=== PATIENT | female | born 1980 | race Caucasian/White ===

== ENCOUNTER 2017-07-15 14:48 | Emergency (ER) | payer MEDICAID ==
[~2017-07-15] VITALS: Ht 165.1 cm; Wt 78.0 kg
[2017-07-15] MEDS ORDERED: TETANUS, DIPHTHERIA, PERTUSSIS VAC/PF 0.5ML (>7YR OLD) IM ONE (18:15)
[2017-07-15] MEDS ORDERED: KETOROLAC 60MG/2ML VIAL IM ONE (18:15)
[2017-07-15 18:23] VITALS: BP 166/116
== END 2017-07-15 18:24 | disposition home or self-care (01) ==
LOC: ER 16:08
DX: S00.83XA Contusion of other part of head, initial encounter (principal); I10 Essential (primary) hypertension; V19.88XA Pedal cyclist (driver) (passenger) injured in other specified transport accidents, initial encounter; Y93.89 Activity, other specified; Y92.89 Other specified places as the place of occurrence of the external cause; Y99.8 Other external cause status
CPT/HCPCS: 81025; 90471; 90715; 96372; 99284; J1885

== ENCOUNTER 2018-02-06 16:50 | Emergency (ER) | payer MEDICAID ==
[~2018-02-06] VITALS: Ht 165.1 cm; Wt 78.0 kg
[2018-02-06] MEDS ORDERED: MORPHINE SULFATE 4 MG/ML CPJ (NOT FOR IM USE) IV STA (17:59)
[2018-02-06] MEDS ORDERED: ONDANSETRON HCL 4MG/2ML VIAL IV STA (17:59)
[2018-02-06] MEDS ORDERED: SODIUM CHLORIDE 0.9% 1,000 ML IV ONE (17:59)
[2018-02-06 18:01] LABS: CLARITY URINE CLOUDY (CLEAR); COLOR URINE DARK YELLOW (YELLOW); KETONES URINE TRACE (NEGATIVE); LEUKOCYTE ESTERASE URINE TRACE (NEGATIVE); NITRITE URINE NEGATIVE (NEGATIVE); OCCULT BLOOD URINE TRACE (NEGATIVE); PH URINE 6.5 (4.5-8.0); PROTEIN URINE 3+ (NEGATIVE); SPECIFIC GRAVITY URINE 1.031 (1.005-1.030)
[2018-02-06 18:06] LABS: BASOPHILS % 0.7 % (0.0-2.0); HEMATOCRIT. 42.3 % (36.0-48.0); HEMOGLOBIN. 14.5 g/dL (12.0-16.0); LYMPHOCYTES % 12.8 % (20.0-50.0); MEAN CORPUSCULAR HEMOGLOBIN 29.9 pg (28.0-32.0); MEAN CORPUSCULAR VOLUME 87.2 fL (81.0-99.0); MEAN PLATELET VOLUME 9.1 fl (7.4-10.4); MONOCYTES % 5.2 % (2.0-8.0); NEUTROPHILS % 81.3 % (40.0-76.0); PLATELET 175 x1000/uL (130-400); RED BLOOD CELL COUNT 4.85 mill/uL (4.2-5.4); RED CELL DISTRIBUTION WIDTH 14.2 % (11.6-14.6)
[2018-02-06 18:13] LABS: CHLORIDE 93 mEq/L (98-107)
[2018-02-06 18:18] LABS: ETHANOL BLOOD 150 mg/dL; HCG SCREEN NEGATIVE
[2018-02-06 18:20] LABS: *AMPHETAMINES SCREEN URINE NEGATIVE (NEGATIVE); *BARBITURATES SCREEN URINE NEGATIVE (NEGATIVE); CANNABINOID URINE SCREEN NEGATIVE (NEGATIVE); PHENCYCLIDINE URINE SCREEN NEGATIVE (NEGATIVE)
[2018-02-06 18:21] LABS: *BENZODIAZEPINES SCREEN URINE NEGATIVE (NEGATIVE); *COCAINE SCREEN URINE NEGATIVE (NEGATIVE); METHADONE URINE SCREEN NEGATIVE (NEGATIVE); OPIATES URINE SCREEN NEGATIVE (NEGATIVE)
[2018-02-06] MEDS ORDERED: LORAZEPAM 2MG/ML CPJ IV ONE (19:00)
[2018-02-06 21:35] VITALS: BP 135/89
== END 2018-02-06 21:35 | disposition home or self-care (01) ==
LOC: ER 20:47
DX: F10.129 Alcohol abuse with intoxication, unspecified (principal); N39.0 Urinary tract infection, site not specified; R73.9 Hyperglycemia, unspecified; K86.1 Other chronic pancreatitis; Y90.6 Blood alcohol level of 120-199 mg/100 ml
CPT/HCPCS: 36415; 80053; 80305; 81003; 83690; 83735; 84703; 85025; 96361; 96374; 96375; 99284; G0482; J2060; J2270; J2405; J7030; Z7610

== ENCOUNTER 2018-02-25 07:31 | Inpatient (IN) | payer MEDICAID ==
[~2018-02-25] VITALS: Ht 160 cm; Wt 78.0 kg
[2018-02-25] MEDS ORDERED: SODIUM CHLORIDE 0.9% 1,000 ML IV ONE (07:55)
[2018-02-25] MEDS ORDERED: LORAZEPAM 2MG/ML CPJ IV ONE ×2 (08:00→11:30)
[2018-02-25] MEDS ORDERED: CHLORDIAZEPOXIDE 25MG CAPSULE PO ONE (08:00)
[2018-02-25] MEDS ORDERED: ONDANSETRON HCL 4MG/2ML VIAL IV ONE ×2 (08:00→10:30)
[2018-02-25 08:28] LABS: BASOPHILS % 0.7 % (0.0-2.0); EOSINOPHILS % 0.1 % (0.0-5.0); HEMOGLOBIN. 12.5 g/dL (12.0-16.0); LYMPHOCYTES % 13.2 % (20.0-50.0); MEAN CORPUSCULAR HEMOGLOBIN 30.1 pg (28.0-32.0); MEAN CORPUSCULAR VOLUME 86.5 fL (81.0-99.0); MEAN PLATELET VOLUME 7.6 fl (7.4-10.4); MONOCYTES % 7.2 % (2.0-8.0); NEUTROPHILS % 78.8 % (40.0-76.0); PLATELET 61 x1000/uL (130-400); RED BLOOD CELL COUNT 4.16 mill/uL (4.2-5.4); RED CELL DISTRIBUTION WIDTH 14.9 % (11.6-14.6)
[2018-02-25 08:33] LABS: CHLORIDE 92 mEq/L (98-107)
[2018-02-25 08:37] LABS: ETHANOL BLOOD 120 mg/dL
[2018-02-25 09:17] LABS: *COCAINE SCREEN URINE NEGATIVE (NEGATIVE); METHADONE URINE SCREEN NEGATIVE (NEGATIVE); OPIATES URINE SCREEN NEGATIVE (NEGATIVE)
[2018-02-25 09:18] LABS: *AMPHETAMINES SCREEN URINE NEGATIVE (NEGATIVE); *BARBITURATES SCREEN URINE NEGATIVE (NEGATIVE); CANNABINOID URINE SCREEN NEGATIVE (NEGATIVE); PHENCYCLIDINE URINE SCREEN NEGATIVE (NEGATIVE)
[2018-02-25 09:20] LABS: *BENZODIAZEPINES SCREEN URINE PRESUMTIVE POSITIVE (NEGATIVE)
[2018-02-25] MEDS ORDERED: METOCLOPRAMIDE HCL 10MG/2ML VIAL IV ONE (11:30)
[2018-02-25] MEDS ORDERED: CLONIDINE 0.1MG TABLET PO PRN (13:00)
[2018-02-25] MEDS ORDERED: POTASSIUM CHLORIDE 20MEQ TABLET SR PO SCH (13:00)
[2018-02-25] MEDS ORDERED: LORAZEPAM 2MG/ML CPJ IM PRN (13:00)
[2018-02-25 14:15] VITALS: BP 138/91
[2018-02-25 15:00] VITALS: BP 130/90
[2018-02-25] MEDS ORDERED: FOLIC ACID 1 MG, THIAMINE HCL 100 MG, MVI, ADULT NO.1 10 ML in DEXTROSE 5% WATER 1,000 ML IV ONE ×4 (15:00)
[2018-02-25] MEDS: CHLORDIAZEPOXIDE 25MG CAPSULE PO SCH ×2 (15:11→21:08)
[2018-02-25 16:30] VITALS: BP 130/90
[2018-02-25] MEDS ORDERED: LORAZEPAM 2MG/ML CPJ IV PRN ×2 (19:00→22:00)
[2018-02-25] MEDS ORDERED: METOPROLOL TARTRATE 50MG TABLET PO SCH (19:15)
[2018-02-25] MEDS: LORAZEPAM 2MG/ML CPJ IV SCH ×2 (19:32→21:09)
[2018-02-25 20:00] VITALS: BP 124/87
[2018-02-26] VITALS: BP 117/86
[2018-02-26 04:00] VITALS: BP 123/90
[2018-02-26] MEDS: CHLORDIAZEPOXIDE 25MG CAPSULE PO SCH ×3 (06:07→22:52)
[2018-02-26 06:40] LABS: HEMATOCRIT 31.6 % (36.0-48.0); MEAN CORPUSCULAR HEMOGLOBIN 30.7 pg (28.0-32.0); MEAN CORPUSCULAR VOLUME 87.7 fL (81.0-99.0); RED CELL DISTRIBUTION WIDTH 14.3 % (11.6-14.6)
[2018-02-26 06:50] LABS: PLATELET 41 x1000/uL (130-400)
[2018-02-26 08:00] VITALS: BP 121/87
[2018-02-26] MEDS: METOPROLOL TARTRATE 50MG TABLET PO SCH ×2 (08:26→20:54)
[2018-02-26 09:32] LABS: CHLORIDE 93 mEq/L (98-107)
[2018-02-26] MEDS: POTASSIUM CHLORIDE 20MEQ TABLET SR PO SCH ×3 (10:18→16:52)
[2018-02-26 11:58] VITALS: BP 125/92
[2018-02-26] MEDS: VANCOMYCIN HCL 1000 MG/20 ML ORAL PO SCH ×2 (14:00→18:25)
[2018-02-26 16:00] VITALS: BP 117/87
[2018-02-26] MEDS ORDERED: WATER IV SCH (18:00)
[2018-02-26] MEDS ORDERED: DEXT 5% IV SCH (18:00)
[2018-02-26] MEDS ORDERED: VANCOMYCIN IV SCH (18:00)
[2018-02-26] MEDS: ONDANSETRON HCL 4MG/2ML VIAL IV PRN (18:26)
[2018-02-26 20:00] VITALS: BP 128/94
[2018-02-26] MEDS: LORAZEPAM 2MG/ML CPJ IV PRN (20:55)
[2018-02-27] VITALS: BP 117/86
[2018-02-27] MEDS: VANCOMYCIN HCL 1000 MG/20 ML ORAL PO SCH ×5 (01:05→23:43)
[2018-02-27 04:00] VITALS: BP 118/89
[2018-02-27] MEDS: ONDANSETRON HCL 4MG/2ML VIAL IV PRN (04:15)
[2018-02-27] MEDS: LORAZEPAM 2MG/ML CPJ IV PRN ×3 (04:16→17:17)
[2018-02-27] MEDS: CHLORDIAZEPOXIDE 25MG CAPSULE PO SCH ×3 (06:26→21:24)
[2018-02-27 06:28] LABS: HEMATOCRIT 33.2 % (36.0-48.0); HEMOGLOBIN 11.6 g/dL (12.0-16.0); MEAN CORPUSCULAR HEMOGLOBIN 30.7 pg (28.0-32.0); RED BLOOD CELL COUNT 3.78 mill/uL (4.2-5.4); RED CELL DISTRIBUTION WIDTH 14.5 % (11.6-14.6)
[2018-02-27 06:34] LABS: CHLORIDE 100 mEq/L (98-107)
[2018-02-27 06:36] LABS: PLATELET 50 x1000/uL (130-400)
[2018-02-27 08:00] VITALS: BP 124/91
[2018-02-27] MEDS: POTASSIUM CHLORIDE 20MEQ TABLET SR PO NR ×2 (08:03→08:46)
[2018-02-27] MEDS: METOPROLOL TARTRATE 50MG TABLET PO SCH ×2 (08:45→21:25)
[2018-02-27] MEDS ORDERED: POTASSIUM CHLORIDE 20MEQ TABLET SR PO NR (11:15)
[2018-02-27 12:00] VITALS: BP 117/89
[2018-02-27 16:00] VITALS: BP 119/87
[2018-02-27 20:00] VITALS: BP 117/90
[2018-02-28] VITALS: BP 98/69
[2018-02-28 04:00] VITALS: BP 105/68
[2018-02-28] MEDS: CHLORDIAZEPOXIDE 25MG CAPSULE PO SCH (06:33)
[2018-02-28] MEDS: VANCOMYCIN HCL 1000 MG/20 ML ORAL PO SCH (06:33)
[2018-02-28 07:20] LABS: HEMATOCRIT 34.2 % (36.0-48.0); HEMOGLOBIN 11.7 g/dL (12.0-16.0); MEAN CORPUSCULAR HEMOGLOBIN 30.6 pg (28.0-32.0); MEAN CORPUSCULAR VOLUME 89.3 fL (81.0-99.0); PLATELET 79 x1000/uL (130-400); RED BLOOD CELL COUNT 3.83 mill/uL (4.2-5.4); RED CELL DISTRIBUTION WIDTH 14.9 % (11.6-14.6)
[2018-02-28 08:00] VITALS: BP 114/66
[2018-02-28 08:25] LABS: CHLORIDE 102 mEq/L (98-107)
[2018-02-28] MEDS: METOPROLOL TARTRATE 50MG TABLET PO SCH (09:36)
[2018-02-28 12:00] VITALS: BP 122/93
[2018-02-28] MEDS ORDERED: LORAZEPAM 2MG/ML CPJ IV PRN (13:00)
[2018-02-28 13:02] VITALS: BP 126/67
[2018-02-28] MEDS ORDERED: CHLORDIAZEPOXIDE 25MG CAPSULE PO SCH (14:00)
== END 2018-02-28 13:30 | disposition home or self-care (01) | DRG 425 ==
LOC: ER 07:31 → 8WST 12:02 → EDBEDREQ 12:05 → ENRESERV 12:20
PROVIDERS: ADMIT Internal Medicine; ATTEND Internal Medicine
DX: E87.6 Hypokalemia (principal); D69.6 Thrombocytopenia, unspecified; F10.239 Alcohol dependence with withdrawal, unspecified; R00.0 Tachycardia, unspecified; Y90.6 Blood alcohol level of 120-199 mg/100 ml; F41.9 Anxiety disorder, unspecified
CPT/HCPCS: 36415; 80048; 80053; 80305; 84484; 85025; 85027; 87493; 93005; 96361; 96365; 96375; 99285; G0482; J2060; J2405; J2765; J3370; J3411; J3490; J7030; J7070

== ENCOUNTER 2018-05-10 20:51 | Emergency (ER) | payer MEDICAID ==
[~2018-05-10] VITALS: Ht 165.1 cm; Wt 73.0 kg
[2018-05-10] MEDS ORDERED: LORAZEPAM 2MG/ML CPJ IV STA (22:58)
[2018-05-10] MEDS ORDERED: ONDANSETRON HCL 4MG/2ML INJ IV STA (22:58)
[2018-05-10] MEDS ORDERED: FOLIC ACID 1 MG, THIAMINE HCL 100 MG, MVI, ADULT NO.1 10 ML in DEXTROSE 5% WATER 1,000 ML IV ONE ×4 (23:00)
[2018-05-10 23:41] LABS: CLARITY URINE CLEAR (CLEAR); COLOR URINE YELLOW (YELLOW); KETONES URINE NEGATIVE (NEGATIVE); LEUKOCYTE ESTERASE URINE NEGATIVE (NEGATIVE); NITRITE URINE NEGATIVE (NEGATIVE); OCCULT BLOOD URINE NEGATIVE (NEGATIVE); PH URINE 6.5 (4.5-8.0); PROTEIN URINE 1+ (NEGATIVE); SPECIFIC GRAVITY URINE 1.021 (1.005-1.030)
[2018-05-10 23:43] LABS: BASOPHILS % 0.9 % (0.0-2.0); EOSINOPHILS % 0.1 % (0.0-5.0); HEMATOCRIT. 40.7 % (36.0-48.0); HEMOGLOBIN. 13.7 g/dL (12.0-16.0); LYMPHOCYTES % 39.8 % (20.0-50.0); MEAN CORPUSCULAR HEMOGLOBIN 29.8 pg (28.0-32.0); MEAN CORPUSCULAR VOLUME 88.5 fL (81.0-99.0); MEAN PLATELET VOLUME 8.8 fl (7.4-10.4); MONOCYTES % 6.4 % (2.0-8.0); NEUTROPHILS % 52.8 % (40.0-76.0); PLATELET 228 x1000/uL (130-400); RED CELL DISTRIBUTION WIDTH 14.1 % (11.6-14.6)
[2018-05-10 23:49] LABS: CHLORIDE 99 mEq/L (98-107)
[2018-05-10 23:49] LABS: *AMPHETAMINES SCREEN URINE NEGATIVE (NEGATIVE); *BENZODIAZEPINES SCREEN URINE NEGATIVE (NEGATIVE); *COCAINE SCREEN URINE NEGATIVE (NEGATIVE); METHADONE URINE SCREEN NEGATIVE (NEGATIVE); OPIATES URINE SCREEN NEGATIVE (NEGATIVE); PHENCYCLIDINE URINE SCREEN NEGATIVE (NEGATIVE)
[2018-05-10 23:50] LABS: HCG SCREEN NEGATIVE
[2018-05-10 23:50] LABS: CANNABINOID URINE SCREEN NEGATIVE (NEGATIVE)
[2018-05-10 23:51] LABS: *BARBITURATES SCREEN URINE NEGATIVE (NEGATIVE)
[2018-05-10 23:55] LABS: ETHANOL BLOOD 289 mg/dL
[2018-05-11] MEDS ORDERED: THIAMINE HCL 100 MG/1 ML 2ML VIAL ONE (00:24)
[2018-05-11 06:40] VITALS: BP 133/99
[2018-05-19] MEDS ORDERED: THIA100T72 PO (12:18)
[2018-05-19] MEDS ORDERED: FOLI-43 PO (12:18)
== END 2018-05-11 06:46 | disposition home or self-care (01) ==
LOC: ER 20:51
DX: F10.129 Alcohol abuse with intoxication, unspecified (principal)
CPT/HCPCS: 36415; 80053; 80305; 80307; 80329; 81003; 81025; 84703; 85025; 96365; 96366; 96375; 99285; G0482; J2060; J2405; J3411; J3490; J7070; Z7610

== ENCOUNTER 2018-08-19 10:51 | Emergency (ER) | payer MEDICAID ==
[~2018-08-19] VITALS: Ht 165.1 cm; Wt 65.0 kg
[~2018-08-19 10:51] MED LIST: FOLI-43 PO; THIA100T72 PO
[2018-08-19 11:47] LABS: BASOPHILS % 1.1 % (0.0-2.0); EOSINOPHILS % 0.3 % (0.0-5.0); HEMATOCRIT. 40.1 % (36.0-48.0); HEMOGLOBIN. 13.3 g/dL (12.0-16.0); LYMPHOCYTES % 50.6 % (20.0-50.0); MEAN CORPUSCULAR HEMOGLOBIN 30.1 pg (28.0-32.0); MEAN CORPUSCULAR VOLUME 91.1 fL (81.0-99.0); MEAN PLATELET VOLUME 6.8 fl (7.4-10.4); PLATELET 440 x1000/uL (130-400); RED CELL DISTRIBUTION WIDTH 19.4 % (11.6-14.6)
[2018-08-19 11:50] LABS: PROTHROMBIN TIME 9.8 sec (9.1-11.1)
[2018-08-19 11:51] LABS: CHLORIDE 106 mEq/L (98-107)
[2018-08-19 12:36] LABS: ETHANOL BLOOD 495 mg/dL
[2018-08-19 12:47] LABS: CLARITY URINE CLEAR (CLEAR); COLOR URINE YELLOW (YELLOW); KETONES URINE NEGATIVE (NEGATIVE); LEUKOCYTE ESTERASE URINE NEGATIVE (NEGATIVE); NITRITE URINE NEGATIVE (NEGATIVE); OCCULT BLOOD URINE TRACE (NEGATIVE); PH URINE 6.5 (4.5-8.0); PROTEIN URINE NEGATIVE (NEGATIVE); SPECIFIC GRAVITY URINE 1.003 (1.005-1.030); UROBILINOGEN URINE 0.2 E.U./dL (0.2-1.0)
[2018-08-19 12:57] LABS: *AMPHETAMINES SCREEN URINE NEGATIVE (NEGATIVE); *BARBITURATES SCREEN URINE NEGATIVE (NEGATIVE); *BENZODIAZEPINES SCREEN URINE NEGATIVE (NEGATIVE); *COCAINE SCREEN URINE NEGATIVE (NEGATIVE); METHADONE URINE SCREEN NEGATIVE (NEGATIVE); OPIATES URINE SCREEN NEGATIVE (NEGATIVE)
[2018-08-19 12:58] LABS: CANNABINOID URINE SCREEN NEGATIVE (NEGATIVE); PHENCYCLIDINE URINE SCREEN NEGATIVE (NEGATIVE)
[2018-08-19] MEDS ORDERED: SODIUM CHLORIDE 0.9% 1,000 ML IV ONE (13:45)
[2018-08-19 16:30] VITALS: BP 128/84
== END 2018-08-19 17:00 | disposition home or self-care (01) ==
LOC: ER 10:51
DX: T51.0X1A Toxic effect of ethanol, accidental (unintentional), initial encounter (principal); R41.82 Altered mental status, unspecified; I10 Essential (primary) hypertension; Y90.8 Blood alcohol level of 240 mg/100 ml or more; Y92.89 Other specified places as the place of occurrence of the external cause
CPT/HCPCS: 36415; 70450; 80053; 80305; 80307; 80329; 81003; 81025; 82140; 85025; 85610; 93005; 96360; 96361; 99284; G0482; J7030

== ENCOUNTER 2018-11-20 11:33 | Emergency (ER) | payer MEDICAID ==
[~2018-11-20] VITALS: Ht 165.1 cm; Wt 72.0 kg
[2018-11-20 18:30] VITALS: BP 144/100
== END 2018-11-20 23:35 | disposition left against medical advice (07) ==
LOC: ER 12:37
DX: R00.0 Tachycardia, unspecified (principal); R19.7 Diarrhea, unspecified; R10.30 Lower abdominal pain, unspecified; Z53.21 Procedure and treatment not carried out due to patient leaving prior to being seen by health care provider
CPT/HCPCS: 93005

== ENCOUNTER 2019-06-19 12:36 | Emergency (ER) | payer MEDICAID ==
[~2019-06-19] VITALS: Ht 172.7 cm; Wt 82.0 kg
[2019-06-19] MEDS ORDERED: VISCOUS LIDOCAINE 2% 15 ML UDC PO STA (12:57)
[2019-06-19] MEDS ORDERED: MAGNESIUM/ALUMINUM HYDROXIDE/SIMETHICONE 30ML UDC PO STA (12:57)
[2019-06-19] MEDS ORDERED: FAMOTIDINE 20MG/2ML VIAL IV STA (12:57)
[2019-06-19] MEDS ORDERED: FOLIC ACID 1 MG, THIAMINE HCL 100 MG, MVI, ADULT NO.1 10 ML in DEXTROSE 5% WATER 1,000 ML IV ONE ×4 (13:00)
[2019-06-19 13:12] LABS: BASOPHILS % 0.7 % (0.0-2.0); EOSINOPHILS % 0.2 % (0.0-5.0); HEMATOCRIT. 38.5 % (36.0-48.0); HEMOGLOBIN. 12.8 g/dL (12.0-16.0); LYMPHOCYTES % 25.3 % (20.0-50.0); MEAN CORPUSCULAR HEMOGLOBIN 27.8 pg (28.0-32.0); MEAN CORPUSCULAR VOLUME 83.1 fL (81.0-99.0); MEAN PLATELET VOLUME 8.1 fl (7.4-10.4); MONOCYTES % 7.1 % (2.0-8.0); NEUTROPHILS % 66.7 % (40.0-76.0); PLATELET 103 x1000/uL (130-400); RED BLOOD CELL COUNT 4.63 mill/uL (4.2-5.4)
[2019-06-19 13:19] LABS: CHLORIDE 98 mEq/L (98-107)
[2019-06-19 13:20] LABS: PROTHROMBIN TIME 10.3 sec (9.6-11.0)
[2019-06-19 13:23] LABS: ETHANOL BLOOD 204 mg/dL
[2019-06-19 13:39] LABS: CLARITY URINE TURBID (CLEAR); COLOR URINE ORANGE (YELLOW); KETONES URINE TRACE (NEGATIVE); LEUKOCYTE ESTERASE URINE 2+ (NEGATIVE); NITRITE URINE NEGATIVE (NEGATIVE); OCCULT BLOOD URINE 3+ (NEGATIVE); PROTEIN URINE 2+ (NEGATIVE); SPECIFIC GRAVITY URINE 1.035 (1.005-1.030)
[2019-06-19] MEDS ORDERED: ONDANSETRON HCL 4MG/2ML INJ IV ONE (15:30)
[2019-06-19] MEDS ORDERED: CEFTRIAXONE 1 G PREMIX 50 ML IV ONE (16:00)
[2019-06-19 18:00] VITALS: BP 142/94
== END 2019-06-19 18:00 | disposition home or self-care (01) ==
LOC: ER 12:36
DX: K29.20 Alcoholic gastritis without bleeding (principal); F10.229 Alcohol dependence with intoxication, unspecified; N39.0 Urinary tract infection, site not specified; I10 Essential (primary) hypertension; Y90.7 Blood alcohol level of 200-239 mg/100 ml
CPT/HCPCS: 36415; 71045; 80053; 80320; 81003; 81025; 83690; 85025; 85610; 96365; 96366; 96367; 96375; 99284; J0696; J2405; J3411; J3490; J7070; Z7610; G0480

== ENCOUNTER 2019-09-07 13:11 | Inpatient (IN) | payer MEDICAID ==
[~2019-09-07] VITALS: Ht 165.1 cm; Wt 67.6 kg
[2019-09-07] MEDS ORDERED: SODIUM CHLORIDE 0.9% 2,000 ML IV ONE (15:45)
[2019-09-07] MEDS ORDERED: LORAZEPAM 2MG/ML CPJ IV ONE (15:45)
[2019-09-07] MEDS ORDERED: CHLORDIAZEPOXIDE 25MG CAPSULE PO ONE (15:45)
[2019-09-07 16:04] LABS: CHLORIDE 94 mEq/L (98-107)
[2019-09-07 16:16] LABS: ETHANOL BLOOD 422 mg/dL
[2019-09-07 16:44] LABS: BASOPHILS % 0.4 % (0.0-2.0); EOSINOPHILS % 0.2 % (0.0-5.0); HEMATOCRIT. 38.5 % (36.0-48.0); HEMOGLOBIN. 13.3 g/dL (12.0-16.0); LYMPHOCYTES % 36.3 % (20.0-50.0); MEAN CORPUSCULAR HEMOGLOBIN 30.8 pg (28.0-32.0); MEAN CORPUSCULAR VOLUME 89.4 fL (81.0-99.0); MONOCYTES % 6.8 % (2.0-8.0); NEUTROPHILS % 56.3 % (40.0-76.0); RED BLOOD CELL COUNT 4.31 mill/uL (4.2-5.4); RED CELL DISTRIBUTION WIDTH 17.1 % (11.6-14.6)
[2019-09-07 16:53] LABS: PLATELET 27 x1000/uL (130-400)
[2019-09-07 17:10] LABS: CLARITY URINE CLEAR (CLEAR); COLOR URINE RED (YELLOW); KETONES URINE NEGATIVE (NEGATIVE); LEUKOCYTE ESTERASE URINE 1+ (NEGATIVE); NITRITE URINE NEGATIVE (NEGATIVE); OCCULT BLOOD URINE 3+ (NEGATIVE); PH URINE 6.5 (4.5-8.0); PROTEIN URINE 3+ (NEGATIVE); SPECIFIC GRAVITY URINE 1.017 (1.005-1.030); UROBILINOGEN URINE 0.2 E.U./dL (0.2-1.0)
[2019-09-07 17:16] LABS: *AMPHETAMINES SCREEN URINE NEGATIVE (NEGATIVE); *BARBITURATES SCREEN URINE NEGATIVE (NEGATIVE)
[2019-09-07 17:18] LABS: *COCAINE SCREEN URINE NEGATIVE (NEGATIVE); CANNABINOID URINE SCREEN NEGATIVE (NEGATIVE); METHADONE URINE SCREEN NEGATIVE (NEGATIVE); OPIATES URINE SCREEN NEGATIVE (NEGATIVE); PHENCYCLIDINE URINE SCREEN NEGATIVE (NEGATIVE)
[2019-09-07 17:22] LABS: *BENZODIAZEPINES SCREEN URINE PRESUMTIVE POSITIVE (NEGATIVE)
[2019-09-07 17:23] LABS: CREATINE KINASE 90 IU/L (26-192)
[2019-09-07 17:26] LABS: B-HCG QUANTITATIVE < 1 mIU/mL (<3)
[2019-09-07 17:30] LABS: PLATELET ESTIMATE MARKEDLY DECREASED
[2019-09-07] MEDS ORDERED: CEFTRIAXONE 1 G PREMIX 50 ML IV ONE (19:30)
[2019-09-07 22:00] VITALS: BP 138/88
[2019-09-07 22:05] VITALS: BP 138/88
[2019-09-08] VITALS: BP 122/80
[2019-09-08] MEDS: LORAZEPAM 2MG/ML CPJ IV PRN ×2 (00:03→09:42)
[2019-09-08] MEDS: ONDANSETRON HCL 4MG/2ML INJ IV PRN ×3 (02:55→21:04)
[2019-09-08 04:00] VITALS: BP 113/79
[2019-09-08] MEDS: CHLORDIAZEPOXIDE 25MG CAPSULE PO SCH ×3 (05:35→21:04)
[2019-09-08 08:18] VITALS: BP 136/93
[2019-09-08] MEDS ORDERED: MULTIVITAMIN PO SCH (09:00)
[2019-09-08] MEDS: THIAMINE HCL 100MG TABLET PO SCH (09:41)
[2019-09-08] MEDS: MULTIVITAMINS,THER W-MINERALS TABLET PO SCH (09:41)
[2019-09-08] MEDS: FOLIC ACID 1MG TABLET PO SCH (09:41)
[2019-09-08] MEDS: FAMOTIDINE 20MG TABLET PO SCH ×2 (09:41→18:36)
[2019-09-08 12:11] VITALS: BP 123/90
[2019-09-08] MEDS ORDERED: MAGNESIUM/ALUMINUM HYDROXIDE/SIMETHICONE 30ML UDC PO PRN (15:30)
[2019-09-08] MEDS ORDERED: ACETAMINOPHEN 325MG TABLET PO PRN (15:30)
[2019-09-08] MEDS ORDERED: HYDROCODONE/ACETAMINOPHEN 5/325MG TABLET PO PRN (15:30)
[2019-09-08] MEDS ORDERED: CLONIDINE 0.1MG TABLET PO PRN (15:30)
[2019-09-08 15:59] VITALS: BP_SYST 127; BP_DIAS 45; BP_DIAS 93
[2019-09-08 16:08] LABS: HEMATOCRIT 30.4 % (36.0-48.0); HEMOGLOBIN 10.7 g/dL (12.0-16.0); MEAN CORPUSCULAR HEMOGLOBIN 31.5 pg (28.0-32.0); MEAN CORPUSCULAR VOLUME 89.4 fL (81.0-99.0); RED CELL DISTRIBUTION WIDTH 16.3 % (11.6-14.6)
[2019-09-08] MEDS: SODIUM CHLORIDE 0.9% 1,000 ML IV SCH (16:11)
[2019-09-08 16:16] LABS: CHLORIDE 92 mEq/L (98-107)
[2019-09-08 16:17] LABS: PLATELET 20 x1000/uL (130-400)
[2019-09-08] MEDS: CEFTRIAXONE 1 G PREMIX 50 ML IV SCH (18:37)
[2019-09-08 20:15] VITALS: BP 129/100
[2019-09-09] VITALS (7 sets, daily range): BP systolic 119–132; BP diastolic 78–96
[2019-09-09] MEDS ORDERED: POTASSIUM CHLORIDE INJ 40 MEQ in DEXT 5% WATER 500 ML IV NR (00:30)
[2019-09-09] MEDS: CHLORDIAZEPOXIDE 25MG CAPSULE PO SCH ×3 (06:26→22:16)
[2019-09-09 07:11] LABS: CHLORIDE 97 mEq/L (98-107)
[2019-09-09 07:20] LABS: BASOPHILS % 0.5 % (0.0-2.0); EOSINOPHILS % 2.2 % (0.0-5.0); HEMATOCRIT. 30.8 % (36.0-48.0); HEMOGLOBIN. 10.7 g/dL (12.0-16.0); LYMPHOCYTES % 31.6 % (20.0-50.0); MEAN CORPUSCULAR HEMOGLOBIN 31.2 pg (28.0-32.0); MEAN CORPUSCULAR VOLUME 89.9 fL (81.0-99.0); NEUTROPHILS % 56.7 % (40.0-76.0); RED BLOOD CELL COUNT 3.42 mill/uL (4.2-5.4); RED CELL DISTRIBUTION WIDTH 16.2 % (11.6-14.6)
[2019-09-09 07:25] LABS: PHOSPHORUS 3.1 mg/dL (2.5-4.9)
[2019-09-09 07:27] LABS: LDL CHOLESTEROL 60 mg/dL (5-100)
[2019-09-09 07:28] LABS: HDL CHOLESTEROL 62 mg/dL (40-59)
[2019-09-09 07:54] LABS: PLATELET 27 x1000/uL (130-400)
[2019-09-09] MEDS: FOLIC ACID 1MG TABLET PO SCH (08:47)
[2019-09-09] MEDS: MULTIVITAMINS,THER W-MINERALS TABLET PO SCH (08:47)
[2019-09-09] MEDS: FAMOTIDINE 20MG TABLET PO SCH ×2 (08:47→17:22)
[2019-09-09] MEDS: THIAMINE HCL 100MG TABLET PO SCH (08:47)
[2019-09-09] MEDS ORDERED: POTASSIUM CHLORIDE 20MEQ TABLET SR PO NR (09:03)
[2019-09-09] MEDS ORDERED: MAGNESIUM 2 G PREMIX 50 ML IV NR (10:00)
[2019-09-09] MEDS: SODIUM CHLORIDE 0.9% 1,000 ML IV SCH ×2 (11:15→22:20)
[2019-09-09 11:36] LABS: HEPATITIS B SURFACE ANTIGEN NEGATIVE
[2019-09-09] MEDS: ONDANSETRON HCL 4MG/2ML INJ IV PRN (11:36)
[2019-09-09 12:06] LABS: HEPATITIS A AB IGM NEGATIVE (NEGATIVE)
[2019-09-09 14:44] LABS: PLATELET ESTIMATE MARKEDLY DECREASED
[2019-09-09] MEDS: CEFTRIAXONE 1 G PREMIX 50 ML IV SCH (17:22)
[2019-09-10 04:00] VITALS: BP 125/88
[2019-09-10] MEDS: CHLORDIAZEPOXIDE 25MG CAPSULE PO SCH ×3 (05:57→23:09)
[2019-09-10 06:57] LABS: CHLORIDE 102 mEq/L (98-107)
[2019-09-10 07:10] LABS: BASOPHILS % 0.6 % (0.0-2.0); EOSINOPHILS % 3.3 % (0.0-5.0); HEMATOCRIT. 27.5 % (36.0-48.0); HEMOGLOBIN. 9.4 g/dL (12.0-16.0); LYMPHOCYTES % 33.8 % (20.0-50.0); MEAN CORPUSCULAR HEMOGLOBIN 31.1 pg (28.0-32.0); MEAN PLATELET VOLUME 10.5 fl (7.4-10.4); MONOCYTES % 8.9 % (2.0-8.0); NEUTROPHILS % 53.4 % (40.0-76.0); RED BLOOD CELL COUNT 3.03 mill/uL (4.2-5.4)
[2019-09-10 07:43] LABS: PLATELET 36 x1000/uL (130-400)
[2019-09-10 08:00] VITALS: BP 111/79
[2019-09-10] MEDS: THIAMINE HCL 100MG TABLET PO SCH (08:29)
[2019-09-10] MEDS: FAMOTIDINE 20MG TABLET PO SCH ×2 (08:29→18:04)
[2019-09-10] MEDS: MULTIVITAMINS,THER W-MINERALS TABLET PO SCH (08:29)
[2019-09-10] MEDS: SODIUM CHLORIDE 0.9% 1,000 ML IV SCH ×2 (08:29→18:04)
[2019-09-10] MEDS: FOLIC ACID 1MG TABLET PO SCH (08:29)
[2019-09-10 12:00] VITALS: BP 113/71
[2019-09-10] MEDS ORDERED: POTASSIUM CHLORIDE 20MEQ TABLET SR PO NR (12:00)
[2019-09-10 16:00] VITALS: BP 129/87
[2019-09-10] MEDS: CEFTRIAXONE 1 G PREMIX 50 ML IV SCH (18:04)
[2019-09-10 20:48] VITALS: BP 111/76
[2019-09-11 00:18] VITALS: BP 115/78
[2019-09-11] MEDS: SODIUM CHLORIDE 0.9% 1,000 ML IV SCH (04:15)
[2019-09-11 04:39] VITALS: BP 122/79
[2019-09-11] MEDS: CHLORDIAZEPOXIDE 25MG CAPSULE PO SCH (05:55)
[2019-09-11 08:00] VITALS: BP 135/78
[2019-09-11] MEDS: FAMOTIDINE 20MG TABLET PO SCH (10:29)
[2019-09-11] MEDS: MULTIVITAMINS,THER W-MINERALS TABLET PO SCH (10:30)
[2019-09-11] MEDS: THIAMINE HCL 100MG TABLET PO SCH (10:30)
[2019-09-11] MEDS: FOLIC ACID 1MG TABLET PO SCH (10:30)
[2019-09-11 12:00] VITALS: BP_SYST 140; BP_SYST 141; BP_SYST 144; BP_DIAS 79; BP_DIAS 81; BP_DIAS 82
[2019-09-11 14:23] VITALS: BP 126/74
== END 2019-09-11 16:10 | disposition home or self-care (01) | DRG 720 ==
LOC: ER 13:11 → 6WST 19:24 → EDBEDREQTM 19:55 → ENRESERV 20:34 → 6WST 09-10 21:52
PROVIDERS: ADMIT Internal Medicine; ATTEND Internal Medicine
DX: A41.9 Sepsis, unspecified organism (principal); D69.3 Immune thrombocytopenic purpura; D69.59 Other secondary thrombocytopenia; E83.51 Hypocalcemia; E83.42 Hypomagnesemia; E87.6 Hypokalemia; F10.229 Alcohol dependence with intoxication, unspecified; N39.0 Urinary tract infection, site not specified; F10.239 Alcohol dependence with withdrawal, unspecified; D64.9 Anemia, unspecified; Y90.8 Blood alcohol level of 240 mg/100 ml or more; I10 Essential (primary) hypertension; Z79.899 Other long term (current) drug therapy; Z71.41 Alcohol abuse counseling and surveillance of alcoholic
CPT/HCPCS: 36415; 76700; 80048; 80053; 80061; 80076; 80305; 80307; 80320; 80329; 81003; 82550; 83735; 84100; 84443; 84702; 85025; 85027; 86705; 86709; 86803; 87077; 87186; 87340; 93970; 96374; 97161; 99285; C1893; J0696; J2060; J2405; J3475; J3480; J7030; J7060; G0480

== ENCOUNTER 2020-01-02 16:55 | Inpatient (IN) | payer MEDICAID ==
[~2020-01-02] VITALS: Ht 165.1 cm; Wt 73.0 kg
[2020-01-02] MEDS ORDERED: ONDANSETRON HCL 4MG/2ML INJ IV STA (21:12)
[2020-01-02] MEDS ORDERED: LORAZEPAM 2MG/ML CPJ IV STA (21:12)
[2020-01-02] MEDS ORDERED: SODIUM CHLORIDE 0.9% 1,000 ML IV ONE (21:12)
[2020-01-02] MEDS ORDERED: FOLIC ACID 1 MG, THIAMINE HCL 100 MG, MVI, ADULT NO.1 10 ML in DEXTROSE 5% WATER 1,000 ML IV ONE ×4 (21:15)
[2020-01-02] MEDS ORDERED: THIAMINE HCL 100 MG/1 ML 2ML VIAL ONE (21:43)
[2020-01-02 21:51] LABS: BASOPHILS % 0.6 % (0.0-2.0); HEMATOCRIT. 38.5 % (36.0-48.0); HEMOGLOBIN. 13.2 g/dL (12.0-16.0); LYMPHOCYTES % 28.2 % (20.0-50.0); MEAN CORPUSCULAR HEMOGLOBIN 29.4 pg (28.0-32.0); MEAN CORPUSCULAR VOLUME 85.5 fL (81.0-99.0); MEAN PLATELET VOLUME 8.5 fl (7.4-10.4); MONOCYTES % 6.3 % (2.0-8.0); NEUTROPHILS % 64.9 % (40.0-76.0); RED CELL DISTRIBUTION WIDTH 18.2 % (11.6-14.6)
[2020-01-02 21:58] LABS: CHLORIDE 95 mEq/L (98-107)
[2020-01-02 22:06] LABS: HCG SCREEN NEGATIVE
[2020-01-02 22:07] LABS: CREATINE KINASE 80 IU/L (26-192)
[2020-01-02 22:14] LABS: ETHANOL BLOOD 467 mg/dL
[2020-01-02] MEDS ORDERED: POTASSIUM CHLORIDE 20MEQ TABLET SR PO ONE (22:45)
[2020-01-03] MEDS ORDERED: LORAZEPAM 2MG/ML CPJ IV ONE ×2 (02:30→06:36)
[2020-01-03] MEDS ORDERED: ACETAMINOPHEN 325MG TABLET PO NR (02:30)
[2020-01-03] MEDS ORDERED: SODIUM CHLORIDE 0.9% 1,000 ML IV ONE (06:36)
[2020-01-03 09:23] VITALS: BP 142/95
[2020-01-03] MEDS ORDERED: ACETAMINOPHEN 325MG TABLET PO PRN (10:30)
[2020-01-03] MEDS: LORAZEPAM 2MG/ML CPJ IV PRN ×3 (11:00→23:05)
[2020-01-03 11:48] VITALS: BP 121/81
[2020-01-03] MEDS ORDERED: POTASSIUM CHLORIDE 20MEQ TABLET SR PO NR (12:00)
[2020-01-03 12:05] LABS: PHOSPHORUS 2.9 mg/dL (2.5-4.9)
[2020-01-03 12:38] LABS: PLATELET 39 x1000/uL (130-400)
[2020-01-03] MEDS: ONDANSETRON HCL 4MG/2ML INJ IV PRN ×2 (12:40→18:52)
[2020-01-03] MEDS ORDERED: METOPROLOL TARTRATE 25MG TABLET PO NR (13:15)
[2020-01-03] MEDS: CHLORDIAZEPOXIDE 25MG CAPSULE PO SCH ×2 (13:30→21:39)
[2020-01-03] MEDS: FOLIC ACID 1 MG, THIAMINE HCL 100 MG, MVI, ADULT NO.1 10 ML in DEXTROSE 5% WATER 1,000 ML IV SCH ×4 (13:31)
[2020-01-03 16:00] VITALS: BP 134/96
[2020-01-03] MEDS ORDERED: MAGNESIUM 2 G PREMIX 50 ML IV NR (16:30)
[2020-01-03 20:00] VITALS: BP 138/95
[2020-01-03] MEDS: METOPROLOL TARTRATE 25MG TABLET PO SCH (21:40)
[2020-01-04] MEDS: ONDANSETRON HCL 4MG/2ML INJ IV PRN ×2 (01:19→06:34)
[2020-01-04] MEDS: CHLORDIAZEPOXIDE 25MG CAPSULE PO SCH ×3 (06:34→21:15)
[2020-01-04 07:45] LABS: CHLORIDE 96 mEq/L (98-107)
[2020-01-04 07:51] LABS: HEMATOCRIT. 33.5 % (36.0-48.0); HEMOGLOBIN. 11.5 g/dL (12.0-16.0); MEAN CORPUSCULAR HEMOGLOBIN 29.4 pg (28.0-32.0); MEAN CORPUSCULAR VOLUME 85.6 fL (81.0-99.0); MEAN PLATELET VOLUME 9.1 fl (7.4-10.4); RED BLOOD CELL COUNT 3.91 mill/uL (4.2-5.4)
[2020-01-04 08:00] VITALS: BP 140/104
[2020-01-04 08:09] LABS: PLATELET 32 x1000/uL (130-400)
[2020-01-04] MEDS: METOPROLOL TARTRATE 25MG TABLET PO SCH ×2 (09:03→20:01)
[2020-01-04 10:10] LABS: *BARBITURATES SCREEN URINE NEGATIVE (NEGATIVE); *BENZODIAZEPINES SCREEN URINE NEGATIVE (NEGATIVE)
[2020-01-04 10:11] LABS: *AMPHETAMINES SCREEN URINE NEGATIVE (NEGATIVE); *COCAINE SCREEN URINE NEGATIVE (NEGATIVE); CANNABINOID URINE SCREEN NEGATIVE (NEGATIVE); METHADONE URINE SCREEN NEGATIVE (NEGATIVE); OPIATES URINE SCREEN NEGATIVE (NEGATIVE); PHENCYCLIDINE URINE SCREEN NEGATIVE (NEGATIVE)
[2020-01-04 10:34] LABS: PLATELET ESTIMATE MARKEDLY DECREASED
[2020-01-04 12:00] VITALS: BP 138/99
[2020-01-04] MEDS: FOLIC ACID 1 MG, THIAMINE HCL 100 MG, MVI, ADULT NO.1 10 ML in DEXTROSE 5% WATER 1,000 ML IV SCH ×4 (13:24)
[2020-01-04] MEDS ORDERED: LORAZEPAM 1MG TABLET ONE (13:26)
[2020-01-04] MEDS: LORAZEPAM 2MG/ML CPJ IV PRN ×2 (13:31→20:01)
[2020-01-04 16:00] VITALS: BP 135/99
[2020-01-04 20:00] VITALS: BP 128/94
[2020-01-05] VITALS: BP 117/95
[2020-01-05] MEDS: LORAZEPAM 2MG/ML CPJ IV PRN ×2 (01:51→10:26)
[2020-01-05 03:50] VITALS: BP 125/91
[2020-01-05] MEDS: CHLORDIAZEPOXIDE 25MG CAPSULE PO SCH ×2 (05:16→14:28)
[2020-01-05 07:30] LABS: CHLORIDE 97 mEq/L (98-107)
[2020-01-05 08:00] VITALS: BP 131/89
[2020-01-05] MEDS: METOPROLOL TARTRATE 25MG TABLET PO SCH (08:36)
[2020-01-05] MEDS ORDERED: POTASSIUM CHLORIDE 20MEQ TABLET SR PO NR (09:15)
[2020-01-05] MEDS ORDERED: THIA100T88 MT (09:16)
[2020-01-05] MEDS ORDERED: L25 MT (09:16)
[2020-01-05 12:00] VITALS: BP 118/91
[2020-01-05] MEDS: FOLIC ACID 1 MG, THIAMINE HCL 100 MG, MVI, ADULT NO.1 10 ML in DEXTROSE 5% WATER 1,000 ML IV SCH ×4 (14:00)
[2020-01-05 14:49] VITALS: BP 118/91
== END 2020-01-05 15:20 | disposition home or self-care (01) | DRG 775 ==
LOC: ER 16:55 → EDBEDREQ 01-03 02:46 → 6WST 01-03 03:45 → EDBEDREQTM 01-03 03:47 → EDBEDREQ 01-03 03:47 → ENRESERV 01-03 07:33
PROVIDERS: ADMIT Internal Medicine; ATTEND Internal Medicine
DX: F10.229 Alcohol dependence with intoxication, unspecified (principal); D69.6 Thrombocytopenia, unspecified; F41.9 Anxiety disorder, unspecified; I10 Essential (primary) hypertension; E87.6 Hypokalemia; E83.42 Hypomagnesemia; R00.0 Tachycardia, unspecified; Y90.9 Presence of alcohol in blood, level not specified; Z71.41 Alcohol abuse counseling and surveillance of alcoholic; Z79.899 Other long term (current) drug therapy
CPT/HCPCS: 36415; 80048; 80053; 80305; 80307; 80320; 80329; 82140; 82550; 83735; 84100; 84443; 84484; 84703; 85025; 93005; 99285; J2060; J2405; J3411; J3475; J3490; J7030; J7070; G0480